=== PATIENT | female | born 1995 | race Caucasian/White ===

== ENCOUNTER 2017-04-20 02:05 | Emergency (ER) | payer OTHER, SELFPAY ==
[2017-04-20 02:28] LABS: Protein, Urine (Dipstick) > or equal to 300 mg/dL (Neg-Trace)
[2017-04-20 02:29] LABS: Bilirubin Unable to Interpret (Negative); Blood, Urine Unable to Interpret (Negative); Glucose, Urine (Dipstick) Unable to Interpret mg/dL (Negative); Ketone, Urine Unable to Interpret mg/dL (Negative); Nitrite Unable to Interpret (Negative); Urobilinogen UNABLE TO INTERPRET mg/dL (0.2-1.0)
[2017-04-20 02:31] LABS: Bacteria/HPF 3+ HPF (None Seen); Hyaline Casts/LPF 0-3 HYALINE CAST LPF (0-3 Hyaline); RBC/HPF 21-50 HPF (0-3)
[2017-04-20] MEDS ORDERED: Phenazopyridine HCl 97.5 MG TABLET ONE (02:45)
[2017-04-20] MEDS ORDERED: Ciprofloxacin 500 MG TAB ONE (02:46)
[2017-04-20] MEDS ORDERED: Ibuprofen 800 MG TAB ONE (02:50)
== END 2017-04-20 03:16 | disposition home or self-care (01) ==
LOC: SCSER 02:05
DX: N30.01 Acute cystitis with hematuria (principal); F41.9 Anxiety disorder, unspecified
CPT/HCPCS: 81003; 81015; 81025; 99283